=== PATIENT | female | born 1945 | race Caucasian/White ===

== ENCOUNTER 2017-08-12 18:33 | Emergency (ER) | payer MEDICARE ==
[2017-08-12] MEDS ORDERED: MORPHINE SULFATE 2 MG INJ IV ONE (19:07)
[2017-08-12] MEDS ORDERED: TORAdol 30 mg Injection IV ONE (19:07)
[2017-08-12] MEDS ORDERED: DECADRON 10MG INJ. IM ONE (19:07)
[2017-08-12] MEDS ORDERED: VALIUM 10 MG/2 ML SYRINGE IV ONE (19:09)
--- NOTE | 2017-08-12 19:13 | ERPHSYRPT ---
- History of Present Illness Time Seen by Provider: 08/12/17 19:03 Source: patient Exam Limitations: no limitations Patient Subjective Stated Complaint: PT BROUGHT IN BY EMS PT STATES SHE HAS CHRONIC BACK. PAIN STATES THAT EVEN ELAINE SMALLEST MOVEMENT. "WILL MAKE IT GO OUT" STATES SHE BEGAN HAVING LOWER. BACK PAIN YESTERDAY BUT STATES NOT GETTING ANY BETTER. DENIES FALL OR TRAUMA TO BACK. Triage Nursing Assessment: PT ALERT WARM AND DRY PT APPEARS TO BE IN PAIN. Physician History: 72 y/o female brought in by ambulance for lower back pain that started this morning while grabbing for an object. Pt states that she has been dealing with low back pain for the past few weeks but the pain was worse today. Pt describes the pain as sharp, constant, 5/10, as high as 10/10 with movement and not relieved by advil. Pt denies any leg weakness or bowel/urinary incontinence. No known fall or injury. Timing/Duration: today Method of Injury: twisted Quality: sharp Back Pain Location: lumbar spine Severity of Pain-Max: severe Severity of Pain-Current: moderate Modifying Factors: Improves With: nothing Associated Symptoms: denies symptoms Allergies/Adverse Reactions: No Known Drug Allergies Allergy (Verified 04/30/16 10:58) Home Medications: Aspirin EC 81 mg [Ecotrin 81 mg] 81 mg PO DAILY 04/18/13 [History] Metoprolol Tartrate 50 mg [Lopressor 50 MG] 50 mg PO DAILY 04/18/13 [ History] Multivitamin [Multivitamins] 1 each PO DAILY 04/18/13 [History] Sertraline HCl 100 mg [Zoloft 100 MG] 50 mg PO DAILY 04/18/13 [History] Simvastatin [Zocor] 40 mg PO DAILY 04/30/16 [History] Hx Tetanus, Diphtheria Vaccination/Date Given: Yes Hx Influenza Vaccination/Date Given: Yes Hx Pneumococcal Vaccination/Date Given: Yes Immunizations Up to Date: Yes - Review of Systems Constitutional: No Fever, No Chills Eyes: No Symptoms Ears, Nose, & Throat: No Symptoms Respiratory: No Cough, No Dyspnea Cardiac: No Chest Pain, No Edema, No Syncope Abdominal/Gastrointestinal: No Abdominal Pain, No Nausea, No Vomiting, No Diarrhea Genitourinary Symptoms: No Dysuria, No Frequency, No Hematuria Musculoskeletal: Back Pain, No Neck Pain Skin: No Rash Neurological: No Dizziness, No Focal Weakness, No Gait Changes, No Sensory Changes Psychological: No Symptoms Endocrine: No Symptoms All Other Systems: Reviewed and Negative - Past Medical History Pertinent Past Medical History: Yes Neurological History: TIA ENT History: No Pertinent History Cardiac History: Hypertension Respiratory History: No Pertinent History Endocrine Medical History: No Pertinent History Musculoskeletal History: Other GI Medical History: No Pertinent History History: No Pertinent History Psycho-Social History: No Pertinent History Female Reproductive Disorders: No Pertinent History Other Medical History: APPEDIX AND REMOVAL OF 15-18 INCHES OF COLON. No hx of heart disease. MVP. Heart murmur - Past Surgical History Past Surgical History: Yes Neuro Surgical History: No Pertinent History Cardiac: No Pertinent History Respiratory: No Pertinent History Gastrointestinal: Appendectomy, Cholecystectomy Genitourinary: No Pertinent History Musculoskeletal: No Pertinent History Female Surgical History: Hysterectomy Other Surgical History: D&C, OVARIAN CYST - Social History Smoking Status: Never smoker Exposure to second hand smoke: No Drug Use: none Patient Lives Alone: No - Female History Hx Last Menstrual Period: N/A Hx Now: No - Nursing Vital Signs Nursing Vital Signs: Initial Vital Signs Temperature 98.4 F 08/12/17 18:40 Pulse Rate 71 08/12/17 18:40 Respiratory Rate 18 08/12/17 18:40 O2 Sat by Pulse Oximetry 100 08/12/17 18:40 Pain Scale Pain Intensity 8 - Physical Exam General Appearance: no apparent distress, alert Eye Exam: PERRL/EOMI, eyes nml inspection Neck Exam: normal inspection, non-tender, supple, full range of motion, No meningismus, No midline tenderness Respiratory Exam: normal breath sounds, lungs clear, No respiratory distress Cardiovascular Exam: regular rate/rhythm, normal heart sounds Gastrointestinal Exam: soft, No tenderness, No mass Back Exam: vertebral tenderness, muscle spasm, point tenderness, No normal range of motion, No CVA tenderness Extremity Exam: normal inspection, normal range of motion, No calf tenderness, No pedal edema Neurologic Exam: alert, oriented x 3, cooperative, synthetic cloth binding cutter II-XII nml as tested, normal mood/affect, nml station & gait, sensation nml, No motor deficits Skin Exam: normal color, warm, dry, No rash SpO2: 100 Oxygen Delivery: Room Air - Course Nursing assessment & vital signs reviewed: Yes Ordered Tests: Active Orders 24 hr Category Date Time Status LUMBAR SPINE W/O [CT] Stat Exams 08/12/17 19:07 Taken Medication Summary Discontinued Medications Generic Name Dose Route Start Last Admin Trade Name Samantha PRN Reason Stop Dose Admin Cyclobenzaprine HCl 10 mg 08/12/17 19:31 08/12/17 19:37 Cyclobenzaprine 10 Mg PO 08/12/17 19:32 10 mg STAT ONE Administration Cyclobenzaprine HCl Confirm 08/12/17 19:37 Cyclobenzaprine 10 Mg Administered 08/12/17 19:38 Dose 10 mg .ROUTE .STK-MED ONE Dexamethasone Sodium Phosphate 10 mg 08/12/17 19:07 08/12/17 19:30 Decadron 10mg Inj. IM 08/12/17 19:08 Not Given STAT ONE Dexamethasone Sodium Phosphate Confirm 08/12/17 19:20 Decadron 10mg Inj. Administered 08/12/17 19:21 Dose 10 mg .ROUTE .STK-MED ONE Dexamethasone Sodium Phosphate 10 mg 08/12/17 19:27 08/12/17 19:29 Decadron 10mg Inj. IV 08/12/17 19:28 10 mg STAT ONE Administration Diazepam 2 mg 08/12/17 19:09 08/12/17 19:30 Valium 10 Mg/2 Ml Syringe IV 08/12/17 19:10 Not Given STAT ONE Ketorolac Tromethamine 30 mg 08/12/17 19:07 08/12/17 19:29 Toradol 30 Mg Injection IV 08/12/17 19:08 30 mg STAT ONE Administration Ketorolac Tromethamine Confirm 08/12/17 19:19 Toradol 30 Mg Injection Administered 08/12/17 19:20 Dose 30 mg .ROUTE .STK-MED ONE Morphine Sulfate 2 mg 08/12/17 19:07 08/12/17 19:29 Morphine Sulfate 2 Mg Inj IV 08/12/17 19:08 2 mg STAT ONE Administration Morphine Sulfate Confirm 08/12/17 19:20 Morphine Sulfate 2 Mg Inj Administered 08/12/17 19:21 Dose 2 mg .ROUTE .STK-MED ONE - Progress Progress: improved Progress Note: 08/12/17 20:33 The patient feels better after receiving decadron, morphine, toradol and flexeril. The CT scan lumbar spine shows degenerative disc disease and mild spinal stenosis. The patient will be d/c home on short course of steroids, norco , and flexeril for back spasm. - Departure Time of Disposition: 20:34 Departure Disposition: Home Clinical Impression: Back strain Qualifiers: Encounter type: initial encounter Qualified Code(s): S39.012A - Strain of muscle, fascia and tendon of lower back, initial encounter Condition: Stable Critical Care Time: No Referrals: ABHILASH CHAIDEZ [Primary Care Provider] - Instructions: Low Back Pain (DC) Additional Instructions: Return to the ER if you should have worsening back pain, leg weakness or urinary or bowel incontinence. Prescriptions: Cyclobenzaprine HCl [Flexeril] 10 mg PO TID PRN #15 tablet PRN Reason: Muscle Spasms Hydrocodone Bit/Acetaminophen [[place] 5-325 Tablet] 1 each PO QID PRN #15 tablet MDD 4 PRN Reason: Severe Pain Prednisone 20 mg [Deltasone 20 mg] 20 mg PO DAILY #5 tablet
[2017-08-12] MEDS ORDERED: TORAdol 30 mg Injection ONE (19:19)
[2017-08-12] MEDS ORDERED: MORPHINE SULFATE 2 MG INJ ONE (19:20)
[2017-08-12] MEDS ORDERED: DECADRON 10MG INJ. ONE (19:20)
[2017-08-12] MEDS ORDERED: DECADRON 10MG INJ. IV ONE (19:27)
[2017-08-12] MEDS ORDERED: Cyclobenzaprine 10 MG PO ONE (19:31)
[2017-08-12] MEDS ORDERED: Cyclobenzaprine 10 MG ONE (19:37)
[2017-08-12 20:59] VITALS: BP 161/74; PULSE 72; O2SAT 94
--- NOTE | 2017-08-13 09:34 | XRAY ---
Indication: Chronic low back pain. Multiple contiguous axial images obtained through the lumbar spine. Sagittal and coronal reformatted images obtained. Comparison: None Axial images negative for acute fracture, suspicious bone lesions, or spinal canal stenosis. At the L4-S1 levels, there is broad-based disc bulge effacing the thecal sac. Facets are symmetric with bilateral L5-S1 degenerative facet arthropathy. Also bilateral L4-L5 foraminal narrowing and bilateral L5-S1 foraminal stenosis. Sagittal and coronal reformatted images demonstrates normal alignment with L5-S1 disc space loss. No acute compression fracture or subluxation. Visualized noncontrasted soft tissues demonstrates mild aortoiliac calcifications without AAA, 1 cm right mid renal cortical cyst, and previous cholecystectomy. Impression: 1. L4-S1 degenerative disc disease better evaluated with outpatient MRI. 2. Negative acute fracture/subluxation. 3. Right renal cyst. Comment: Preliminary interpretation was made by [facility]. No discrepancy. CTDI 74.88
== END 2017-08-12 21:01 | disposition home or self-care (01) ==
LOC: ED 18:33
DX: S39.012A Strain of muscle, fascia and tendon of lower back, initial encounter (principal); Z79.899 Other long term (current) drug therapy; M51.36 Other intervertebral disc degeneration, lumbar region; M48.061 Spinal stenosis, lumbar region without neurogenic claudication
CPT/HCPCS: 72131; 96374; 96375; 99284; J1100; J1885; J2270; A9270-GY

== ENCOUNTER 2017-10-18 05:58 | Day surgery (SDC) | payer MEDICARE ==
[2017-10-18] MEDS ORDERED: DIPRIVAN 200 MG/20 ML IV ONE (05:59)
[2017-10-18] MEDS ORDERED: Ketamine HCl 50 MG/ML IV ONE (05:59)
[2017-10-18] MEDS ORDERED: Lactated Ringers 1,000 ML IV SCH (06:00)
[2017-10-18 08:41] VITALS: O2SAT 97
[2017-10-18 09:10] VITALS: BP 152/77; PULSE 71
--- NOTE | 2017-10-18 09:13 | OP ---
SURGERY DATE/TIME: 10/18/2017723 PREOPERATIVE DIAGNOSIS: Heme-positive stool. POSTOPERATIVE DIAGNOSIS: Sigmoid colon polyp. PROCEDURE: Colonoscopy with hot snare polypectomy. SURGEON: Dr. Galarza. ANESTHESIA: MAC. Medications given by anesthesia department. HISTORY: The patient is a 72 white female presenting now for colonoscopic evaluation. She had a positive stool for occult blood. She was felt the need to have endoscopic evaluation. She was appraised of the risks of the procedure including the risk of perforation, phlebitis, untoward reaction to medication, bleeding and missed lesions. The patient verbalized her understanding and desired to have the procedure performed. DESCRIPTION OF PROCEDURE: The patient was given the medications by the anesthesia department. She had continuous pulse oximetry, ECG monitoring, intermittent blood pressure monitoring and tidal CO2 monitoring during the examination. She was placed in the left lateral decubitus position. A digital rectal examination was performed and revealed normal anal sphincter tone and no masses. The flexible Olympus pediatric colonoscope was used to intubate the rectum. A view of the colon was developed sequentially to the cecum including a view of the anastomotic junction of a previous partial right hemicolectomy. Upon insertion and withdrawal otherwise was noted a 1 cm pedunculated polyp in the sigmoid colon this was removed using hot polypectomy snare and retrieved for pathologic evaluation. No mucosal lesions were encountered. The scope was removed from the patient who tolerated the procedure well and was sent back to OP recovery in good condition. The prep was noted to be fair to good.
== END 2017-10-18 09:26 | disposition home or self-care (01) ==
LOC: SDC 05:58
PROVIDERS: ATTEND Family Medicine
PROC: 0DBN8ZX Excision of Sigmoid Colon, Via Natural or Artificial Opening Endoscopic, Diagnostic (ICD-10-PCS; principal; 2017-10-18)
DX: K63.5 Polyp of colon (principal); R19.5 Other fecal abnormalities
CPT/HCPCS: 88305; 99100; J2704

== ENCOUNTER 2018-04-17 10:14 | Observation (INO) | payer MEDICARE ==
--- NOTE | 2018-04-17 10:27 | ERPHSYRPT ---
- History of Present Illness Time Seen by Provider: 04/17/18 10:20 Source: patient, family Physician History: 72-year-old white female brought from [facility] with complaints of sudden onset of a decreased responsiveness patient apparently had gotten a flu shot and the pneumonia shot on apparently began to feel sick with cough and vomiting presented to [facility] today patient had a syncopal episode. Arrives somewhat slow to respond on initial evaluation however speaking now moving all extremities. Past medical history includes mitral valve prolapse, borderline diabetes, TIA, high blood pressure Past surgical history includes colon resection appendectomy hysterectomy Social history no tobacco alcohol or illicit drugs Timing/Duration: other (coughing nausea vomiting since syncopal at [facility]) Modifying Factors: Improves With: nothing Associated Symptoms: nausea, vomiting, shortness of breath, cough, syncope, No abdominal pain, No heartburn, No diaphoresis, No chills, No chest pain, No fever , No headaches, No loss of appetite, No malaise, No rash, No seizure, No weakness Allergies/Adverse Reactions: No Known Drug Allergies Allergy (Verified 04/17/18 10:31) Home Medications: Aspirin 81 mg PO DAILY 10/05/17 [History] Benazepril HCl [Lotensin] 20 mg PO DAILY 10/05/17 [History] Clopidogrel Bisulfate 75 mg [PLAVIX 75 MG Tablet] 75 mg PO DAILY 10/05/17 [History] Dorzolamide HCl [Trusopt] 1 drop OP BID 10/05/17 [History] Metformin HCl 500 mg [Glucophage 500 MG] 500 mg PO DAILY 10/05/17 [History ] Metoprolol Succinate 50 mg PO DAILY 10/05/17 [History] Multivitamin [Multivitamins] 1 each PO DAILY 10/05/17 [History] Sertraline HCl 100 mg PO DAILY 10/05/17 [History] Triamterene/Hydrochlorothiazid [Triamterene-Hctz 37.5-25 mg Tb] 1 tab PO DAILY 10/05/17 [History] Simvastatin 40 mg [Zocor 40 mg] 40 mg PO HS 10/18/17 [History] Latanoprost/Pf [Latanoprost 0.005% Eye Drop] 1 drop OP DAILY 04/17/18 [History] Hx Tetanus, Diphtheria Vaccination/Date Given: Yes Hx Influenza Vaccination/Date Given: Yes Hx Pneumococcal Vaccination/Date Given: Yes - Review of Systems Constitutional: No Fever, No Chills Eyes: No Symptoms Ears, Nose, & Throat: No Symptoms Respiratory: Cough, Dyspnea Cardiac: Syncope, No Chest Pain, No Edema Abdominal/Gastrointestinal: Nausea, Vomiting Genitourinary Symptoms: No Dysuria Musculoskeletal: No Back Pain, No Neck Pain Skin: No Rash Neurological: No Dizziness, No Focal Weakness, No Sensory Changes Psychological: No Symptoms Endocrine: No Symptoms All Other Systems: Reviewed and Negative - Past Medical History Pertinent Past Medical History: Yes Neurological History: TIA ENT History: No Pertinent History Cardiac History: Hypertension Respiratory History: No Pertinent History Endocrine Medical History: No Pertinent History Musculoskeletal History: Other GI Medical History: No Pertinent History History: No Pertinent History Psycho-Social History: No Pertinent History Female Reproductive Disorders: No Pertinent History Other Medical History: APPEDIX AND REMOVAL OF 15-18 INCHES OF COLON. No hx of heart disease. MVP. 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 - Social History Smoking Status: Never smoker Exposure to second hand smoke: No Drug Use: none Patient Lives Alone: No - Nursing Vital Signs Nursing Vital Signs: Initial Vital Signs Temperature 97.8 F 04/17/18 10:21 Pulse Rate 66 04/17/18 10:21 Respiratory Rate 20 04/17/18 10:21 Blood Pressure 173/86 04/17/18 10:21 O2 Sat by Pulse Oximetry 99 04/17/18 10:21 Pain Scale Pain Intensity 0 - Physical Exam General Appearance: other (patient slow to respond initially now alert and answering questions frequent cough) Eye Exam: PERRL/EOMI, eyes nml inspection Ears, Nose, Throat Exam: normal ENT inspection, TMs normal, pharynx normal, moist mucous membranes Neck Exam: normal inspection, non-tender, supple, full range of motion Respiratory Exam: normal breath sounds, lungs clear, No respiratory distress Cardiovascular Exam: regular rate/rhythm, normal heart sounds, normal peripheral pulses Gastrointestinal/Abdomen Exam: soft, normal bowel sounds, No tenderness, No mass Back Exam: normal inspection, normal range of motion, No CVA tenderness, No vertebral tenderness Extremity Exam: normal inspection, normal range of motion, pelvis stable Neurologic Exam: alert, oriented x 3, solutions executive security II-XII nml as tested, other (patient slow to respond initially however now alert and answering questions moving all extremities no facial droop speech normal normal finger to nose sensation intact to all extremities cloth picker equal 5 over 5 [place] 2 through 12 intact) Skin Exam: normal color, warm, dry, No rash SpO2 Interpretation: normal (99%) - Course Nursing assessment & vital signs reviewed: Yes EKG Interpreted by Me: RATE (65 bpm), NORMAL AXIS, Other (EKG: Sinus arrhythmia , 65 bpm, normal axis, no acute ST or T wave changes noted) - Radiology Exams Chest X-ray Interpretation: Discussed w/ radiologist (Chest x-ray: Normal heart and lungs. Bony thorax intact with mild osteopenia and degenerative changes. No new or acute findings.) - CT Exams Head CT Interpretation: Discussed w/radiologist (stable, non acute senile brain) Ordered Tests: Active Orders 24 hr Category Date Time Status Accucheck STAT Care 04/17/18 10:16 Active EKG-ER Only STAT Care 04/17/18 10:16 Active IV Insertion STAT Care 04/17/18 10:16 Active Pulse Oximetry (ED) STAT Care 04/17/18 10:16 Active CHEST 1 VIEW (PORTABLE) Stat Exams 04/17/18 10:17 Completed HEAD WITHOUT CONTRAST [CT] Stat Exams 04/17/18 11:07 Completed AMYLASE Stat Lab 04/17/18 10:55 Completed BLOOD CULTURE Stat Lab 04/17/18 11:05 Received CBC W DIFF Stat Lab 04/17/18 10:55 Completed CMP Stat Lab 04/17/18 10:55 Completed CULTURE,URINE Stat Lab 04/17/18 10:16 Received D-DIMER QUANTITATION Stat Lab 04/17/18 10:55 Completed LIPASE Stat Lab 04/17/18 10:55 Completed Lactic Acid Stat Lab 04/17/18 10:55 Completed NT PRO BNP Stat Lab 04/17/18 10:55 Completed TROPONIN Stat Lab 04/17/18 10:55 Completed UA W/RFX UR CULTURE Stat Lab 04/17/18 10:16 Completed Urine Triage Profile Stat Lab 04/17/18 10:42 Completed VENOUS BLOOD GAS Stat Lab 04/17/18 10:55 Completed Medication Summary Generic Name Dose Route Start Last Admin Trade Name Samantha PRN Reason Stop Dose Admin Sodium Chloride 1,000 mls @ 100 mls/hr 04/17/18 10:30 04/17/18 10:52 Sodium Chloride 0.9% 1000 Ml IV 05/17/18 10:29 100 mls/hr .Q10H NICOLETTE Administration Lab/Rad Data: Laboratory Result Diagrams 04/17/18 10:55 Laboratory Results 04/17/18 04/17/18 04/17/18 Range/Units 10:55 10:55 10:55 WBC (4.0-10.5) K/mm3 RBC (4.1-5.4) M/mm3 Hgb (12.0-16.0) gm/dl Hct (35-47) % MCV (78-100) fl MCH (26-32) pg MCHC (32-36) g/dl RDW (11.5-14.0) % Plt Count (150-450) K/mm3 MPV (6-9.5) fl Gran % (36.0-66.0) % Eos # (Auto) (0-0.5) Absolute Lymphs (auto) (1.0-4.6) Absolute Monos (auto) (0.0-1.3) Lymphocytes % (24.0-44.0) % Monocytes % (0.0-12.0) % Eosinophils % (0.00-5.0) % Basophils % (0.0-0.4) % Absolute Granulocytes (1.4-6.9) Basophils # (0-0.4) D-Dimer 830 H* (215-500) ng/mL pO2/FiO2 Ratio 21.0 % VBG pH 7.40 (7.32-7.42) VBG pCO2 at Pat Temp 43 (42-55) mm/Hg VBG pO2 at Pat Temp 16 L (25-40) mm/Hg VBG HCO3 26.6 (22-28) meq/L VBG O2 Sat (Alfredo) 29.5 L (95-100) VBG Base Excess 1.5 (-2.0-2.0) VBG Hemoglobin 12.3 VBG Carboxyhemoglobin 0.7 (0.0-6.9) % T HGB POC Potassium 3.7 (3.5-5.1) Anion Gap (5-15) MEQ/L Lactic Acid (0.4-2.0) Troponin I (0.000-0.034) ng/mL Urine Color (YELLOW) Urine Appearance (CLEAR) Urine pH (5-6) Ur Specific [place] (1.005-1.025) Urine Protein (Negative) Urine Ketones (NEGATIVE) Urine Blood (0-5) Marvin/ul Urine Nitrite (NEGATIVE) Urine Bilirubin (NEGATIVE) Urine Urobilinogen (0-1) mg/dL Ur Leukocyte Esterase (NEGATIVE) Urine WBC (Auto) (0-5) /HPF Urine RBC (Auto) (0-2) /HPF U Epithel Cells (Auto) (FEW) /HPF Urine Bacteria (Auto) (NEGATIVE) /HPF Urine Mucus (Auto) (NEGATIVE) /HPF Urine Culture Reflexed (NO) Urine Glucose (NEGATIVE) mg/dL Ur Methadone (NEGATIVE) 04/17/18 04/17/18 04/17/18 Range/Units 10:55 10:55 10:55 WBC 8.8 (4.0-10.5) K/mm3 RBC 4.36 (4.1-5.4) M/mm3 Hgb 12.9 (12.0-16.0) gm/dl Hct 39.0 (35-47) % MCV 89.4 (78-100) fl MCH 29.6 (26-32) pg MCHC 33.1 (32-36) g/dl RDW 12.9 (11.5-14.0) % Plt Count 370 (150-450) K/mm3 MPV 10.3 H (6-9.5) fl Gran % 72.5 H (36.0-66.0) % Eos # (Auto) 0.51 H (0-0.5) Absolute Lymphs (auto) 1.34 (1.0-4.6) Absolute Monos (auto) 0.53 (0.0-1.3) Lymphocytes % 15.2 L (24.0-44.0) % Monocytes % 6.0 (0.0-12.0) % Eosinophils % 5.8 H (0.00-5.0) % Basophils % 0.5 (0.0-0.4) % Absolute Granulocytes 6.40 (1.4-6.9) Basophils # 0.04 (0-0.4) D-Dimer (215-500) ng/mL pO2/FiO2 Ratio % VBG pH (7.32-7.42) VBG pCO2 at Pat Temp (42-55) mm/Hg VBG pO2 at Pat Temp (25-40) mm/Hg VBG HCO3 (22-28) meq/L VBG O2 Sat (Alfredo) (95-100) VBG Base Excess (-2.0-2.0) VBG Hemoglobin VBG Carboxyhemoglobin (0.0-6.9) % T HGB POC Potassium (3.5-5.1) Anion Gap (5-15) MEQ/L Lactic Acid 1.9 (0.4-2.0) Troponin I (0.000-0.034) ng/mL Urine Color (YELLOW) Urine Appearance (CLEAR) Urine pH (5-6) Ur Specific [place] (1.005-1.025) Urine Protein (Negative) Urine Ketones (NEGATIVE) Urine Blood (0-5) Marvin/ul Urine Nitrite (NEGATIVE) Urine Bilirubin (NEGATIVE) Urine Urobilinogen (0-1) mg/dL Ur Leukocyte Esterase (NEGATIVE) Urine WBC (Auto) (0-5) /HPF Urine RBC (Auto) (0-2) /HPF U Epithel Cells (Auto) (FEW) /HPF Urine Bacteria (Auto) (NEGATIVE) /HPF Urine Mucus (Auto) (NEGATIVE) /HPF Urine Culture Reflexed (NO) Urine Glucose (NEGATIVE) mg/dL Ur Methadone (NEGATIVE) 04/17/18 04/17/18 Range/Units 10:42 10:16 WBC (4.0-10.5) K/mm3 RBC (4.1-5.4) M/mm3 Hgb (12.0-16.0) gm/dl Hct (35-47) % MCV (78-100) fl MCH (26-32) pg MCHC (32-36) g/dl RDW (11.5-14.0) % Plt Count (150-450) K/mm3 MPV (6-9.5) fl Gran % (36.0-66.0) % Eos # (Auto) (0-0.5) Absolute Lymphs (auto) (1.0-4.6) Absolute Monos (auto) (0.0-1.3) Lymphocytes % (24.0-44.0) % Monocytes % (0.0-12.0) % Eosinophils % (0.00-5.0) % Basophils % (0.0-0.4) % Absolute Granulocytes (1.4-6.9) Basophils # (0-0.4) D-Dimer (215-500) ng/mL pO2/FiO2 Ratio % VBG pH (7.32-7.42) VBG pCO2 at Pat Temp (42-55) mm/Hg VBG pO2 at Pat Temp (25-40) mm/Hg VBG HCO3 (22-28) meq/L VBG O2 Sat (Alfredo) (95-100) VBG Base Excess (-2.0-2.0) VBG Hemoglobin VBG Carboxyhemoglobin (0.0-6.9) % T HGB POC Potassium (3.5-5.1) Anion Gap (5-15) MEQ/L Lactic Acid (0.4-2.0) Troponin I (0.000-0.034) ng/mL Urine Color STRAW (YELLOW) Urine Appearance CLEAR (CLEAR) Urine pH 6.0 (5-6) Ur Specific [place] 1.004 (1.005-1.025) Urine Protein NEGATIVE (Negative) Urine Ketones NEGATIVE (NEGATIVE) Urine Blood MODERATE (0-5) Marvin/ul Urine Nitrite NEGATIVE (NEGATIVE) Urine Bilirubin NEGATIVE (NEGATIVE) Urine Urobilinogen NEGATIVE (0-1) mg/dL Ur Leukocyte Esterase NEGATIVE (NEGATIVE) Urine WBC (Auto) 0-2 (0-5) /HPF Urine RBC (Auto) 0-2 (0-2) /HPF U Epithel Cells (Auto) RARE (FEW) /HPF Urine Bacteria (Auto) RARE (NEGATIVE) /HPF Urine Mucus (Auto) SLIGHT (NEGATIVE) /HPF Urine Culture Reflexed YES (NO) Urine Glucose NEGATIVE (NEGATIVE) mg/dL Ur Methadone (NEGATIVE) - Progress Progress: improved Progress Note: 04/17/18 11:50 72-year-old white [facility] with complaint of a syncopal episode. Patient apparently had received a flu vaccination and pneumonia vaccination . She is states that she had general malaise felt weak the vomited one time night continued to have malaise Tuesday and Tuesday she felt better yesterday and then today she began to feel weak and general malaise. She presented to [facility] where she vomited she states she then began to fell lightheaded and passed out. Patient arrives in the emergency room she was a little slow to respond with speaking for approximately a minute but then was able to answer questions and move her extremities. Patient had a frequent cough on arrival which seems to have cleared. I did not find focal deficits CT of the head was obtained secondary to the patient still being a little slow with questions. Patient was started on normal saline 100 mL per hour EKG was obtained. CT of the head is remarkable for senile brain no acute changes. Chest x-ray no acute disease processes noted. EKG sinus arrhythmia 65 bpm normal axis no acute ST or T wave changes. Patient's venous gases are essentially normal pH 7.4 PCO2 43 lactate is 1.9 Patient's chemistry is still pending urinalysis is pending Patient is feeling much better at this time she is in no distress she is alert oriented 3 breathing normally him she has 95% on room air. Blood pressure and pulse are stable patient with good perfusion to all extremities. She has a normal neurologic exam. 04/17/18 15:03 Patient did have a d-dimer of 830 patient is not short of breath at this time she has no chest pain, and she has a GFR of 40 Chemistry is remarkable for a BUN of 23.6 creatinine 1.3 glucose 164 rest the electrolytes essentially normal CBC is normal troponin normal BNP is normal Patient had an episode of feeling dizzy approximately one hour ago while waiting for labs. She is feeling better now. I've discussed the patient's case with Dr. Ruby. Will place patient on observation telemetry. Provide IV fluids. Dr. Ruby did request that I order an echocardiogram in view of the patient's syncope. - Departure Time of Disposition: 15:05 Departure Disposition: Observation Clinical Impression: Syncope Qualifiers: Syncope type: unspecified Qualified Code(s): R55 - Syncope and collapse Condition: Fair Critical Care Time: No Referrals: ABHILASH CHAIDEZ [Primary Care Provider] -
[2018-04-17] MEDS ORDERED: Sodium Chloride 0.9% 1000 ML 1,000 ML IV SCH (10:30)
[2018-04-17 10:59] LABS: VBG BASE EXCESS 1.5 (-2.0-2.0); VBG CARBOXYHEMOGLOBIN 0.7 % T HGB (0.0-6.9); VBG HCO3- 26.6 meq/L (22-28); VBG HEMOGLOBIN 12.3; VBG O2 SATURATION 29.5 (95-100); VBG POTASSIUM 3.7 (3.5-5.1); VBG pH 7.4 (7.32-7.42)
--- NOTE | 2018-04-17 10:59 | XRAY ---
Indication: Cough, syncope, and vertigo. Comparison: April 30, 2016. Portable chest again demonstrates normal heart and lungs. Bony thorax intact again with mild osteopenia and degenerative changes. No new/acute findings.
[2018-04-17 11:00] LABS: Lactic Acid 1.9 (0.4-2.0)
[2018-04-17 11:16] LABS: BASOPHIL % 0.5 % (0.0-0.4); Basophil (Absolute #) 0.04 (0-0.4); Eosinophil % 5.8 % (0.00-5.0); Eosinophil (Absolute #) 0.51 (0-0.5); Granulocytes % 72.5 % (36.0-66.0); Hemoglobin 12.9 gm/dl (12.0-16.0); Lymphocyte (Absolute #) 1.34 (1.0-4.6); Lymphocytes % 15.2 % (24.0-44.0); Mean Cell Volume 89.4 fl (78-100); Mean Corpuscular Hemoglobin 29.6 pg (26-32); Mean Corpuscular Hgb Concent. 33.1 g/dl (32-36); Mean Platelet Volume 10.3 fl (6-9.5); Monocyte (Absolute #) 0.53 (0.0-1.3); Platelet Count 370 K/mm3 (150-450); Red Blood Count 4.36 M/mm3 (4.1-5.4); Red Cell Distribution Width 12.9 % (11.5-14.0); White Blood Count 8.8 K/mm3 (4.0-10.5)
--- NOTE | 2018-04-17 11:44 | XRAY ---
Indication: Syncope and vertigo. Multiple contiguous axial images obtained through the head without contrast. Comparison: April 30, 2014. Again age-appropriate global atrophy and minimal periventricular degenerative micro-ischemia. No acute intracranial hemorrhage, abnormal extra-axial fluid collection, or mass effect. Fourth ventricle is midline without hydrocephalus. Bony calvarium intact. Visualized paranasal sinuses and mastoid air cells are clear. Impression: Stable nonacute senile brain. CTDI 70.31
[2018-04-17 13:32] LABS: Appearance CLEAR (CLEAR); Bilirubin NEGATIVE (NEGATIVE); Blood MODERATE Ery/ul (0-5); Glucose NEGATIVE (NEGATIVE); Ketones NEGATIVE (NEGATIVE); Leukocyte Esterase NEGATIVE (NEGATIVE); Nitrite NEGATIVE (NEGATIVE); Protein,Urine Dip NEGATIVE (Negative); Specific Gravity 1.004 (1.005-1.025); Urobilinogen NEGATIVE mg/dL (0-1)
[2018-04-17] MEDS: Sodium Chloride 0.9% 1000 ML 1,000 ML IV SCH (16:18)
[2018-04-17] MEDS ORDERED: PLAVIX 75 MG Tablet PO SCH (18:00)
[2018-04-17] MEDS ORDERED: Maxzide-25MG Tablet PO ONE (18:04)
[2018-04-17] MEDS ORDERED: ECOTRIN 81 MG PO ONE (18:05)
[2018-04-17] MEDS ORDERED: THERAGRAN MULTIVITAMIN PO ONE (18:06)
[2018-04-17] MEDS ORDERED: Toprol Xl 50 MG PO ONE (18:06)
[2018-04-17] MEDS ORDERED: ZOLOFT 50 MG TABLET PO ONE (18:07)
[2018-04-17] MEDS ORDERED: Lotensin 10 MG PO ONE (18:08)
[2018-04-17] MEDS ORDERED: Xalatan OP SCH (22:00)
[2018-04-17] MEDS ORDERED: ZOCOR 20MG PO SCH (22:00)
[2018-04-18] MEDS: Sodium Chloride 0.9% 1000 ML 1,000 ML IV SCH (02:53)
[2018-04-18 05:30] LABS: BASOPHIL % 0.4 % (0.0-0.4); Basophil (Absolute #) 0.03 (0-0.4); Eosinophil (Absolute #) 0.37 (0-0.5); Granulocyte Absolute (ANC) 4.64 (1.4-6.9); Granulocytes % 62.5 % (36.0-66.0); Hematocrit 33.5 % (35-47); Hemoglobin 10.8 gm/dl (12.0-16.0); Lymphocyte (Absolute #) 1.83 (1.0-4.6); Lymphocytes % 24.6 % (24.0-44.0); Mean Corpuscular Hemoglobin 29.3 pg (26-32); Mean Corpuscular Hgb Concent. 32.2 g/dl (32-36); Mean Platelet Volume 9.5 fl (6-9.5); Monocyte (Absolute #) 0.56 (0.0-1.3); Monocytes % 7.5 % (0.0-12.0); Platelet Count 311 K/mm3 (150-450); Red Blood Count 3.68 M/mm3 (4.1-5.4); White Blood Count 7.4 K/mm3 (4.0-10.5)
[2018-04-18 05:52] LABS: ALBUMIN 3.7 g/dL (3.5-5.0); ANION GAP 12.6 MEQ/L (5-15); BILIRUBIN,TOTAL 0.4 mg/dL (0.2-1.3); Creatinine 1 1.15 mg/dL (0.52-1.04); Total Protein 6.3 g/dL (6.3-8.2)
[2018-04-18] MEDS ORDERED: MEDICATION INTERVENTION MC SCH (06:45)
[2018-04-18 07:12] VITALS: BP 127/57
--- NOTE | 2018-04-18 07:59 | PCM.DCORD ---
- Discharge Discharge Date: 04/18/18 Disposition: Home, Self-Care Condition: Stable Prescriptions: Continue Multivitamin [Multivitamins] 1 each PO DAILY Benazepril HCl [Lotensin] 20 mg PO DAILY Metoprolol Succinate 50 mg PO DAILY Sertraline HCl 100 mg PO DAILY Triamterene/Hydrochlorothiazid [Triamterene-Hctz 37.5-25 mg Tb] 1 tab PO DAILY Clopidogrel Bisulfate 75 mg [PLAVIX 75 MG Tablet] 75 mg PO DAILY Metformin HCl 500 mg [Glucophage 500 MG] 500 mg PO DAILY Dorzolamide HCl [Trusopt] 1 drop OP BID Aspirin 81 mg PO DAILY Simvastatin 40 mg [Zocor 40 mg] 40 mg PO HS Latanoprost/Pf [Latanoprost 0.005% Eye Drop] 1 drop OP DAILY Follow up with: ABHILASH CHAIDEZ [Primary Care Provider] - 1 Week
[2018-04-18 08:01] VITALS: O2SAT 94
[2018-04-18 08:03] VITALS: PULSE 65
--- NOTE | 2018-04-18 08:07 | PCM.HP ---
History of Present Illness - Chief Complaint Chief Complaint: SYNCOPE Date: 04/18/18 History of Present Illness: is a 72 year old female. she lives with her daughter who was not feeling well a little nauseated last week. Ms. Berg went and received a flu and pneumovax at [facility] on and about 4 hours later started with nausea, vomited once and was feeling weak and tired. She continued to feel fatigued and nauseated all weekend and came into [facility] Tuesday but began vomiting there very violently and caused her to pass out. She was taken to the ED where she was a little sluggish and nauseated but no other symptoms. She denies any chest pain, shortness of breath , cough, or swelling in her legs. She denies palpitations. This am she feels well has been able to get out of bed and walk without symptoms and is eating well without nausea or vomiting. - Review of Systems Constitutional: Chills, Fatigue, No Fever Eyes: No Symptoms Ears, Nose, & Throat: No Symptoms Respiratory: No Cough, No Short Of Breath Cardiac: No Chest Pain, No Edema, No Syncope Abdominal/Gastrointestinal: Nausea, Vomiting, No Abdominal Pain, No Diarrhea Genitourinary Symptoms: No Dysuria Musculoskeletal: No Back Pain, No Neck Pain Skin: No Rash Neurological: No Dizziness, No Focal Weakness, No Sensory Changes Psychological: No Symptoms Endocrine: No Symptoms Hematologic/Lymphatic: No Symptoms Immunological/Allergic: No Symptoms Medications & Allergies Home Medications: Home Medication List Aspirin 81 mg PO DAILY 10/05/17 [History Confirmed 04/17/18] Benazepril HCl [Lotensin] 20 mg PO DAILY 10/05/17 [History Confirmed 04/17/18] Clopidogrel Bisulfate 75 mg [PLAVIX 75 MG Tablet] 75 mg PO DAILY 10/05/17 [History Confirmed 04/17/18] Dorzolamide HCl [Trusopt] 1 drop OP BID 10/05/17 [History Confirmed 04/17/18] Metformin HCl 500 mg [Glucophage 500 MG] 500 mg PO DAILY 10/05/17 [ History Confirmed 04/17/18] Metoprolol Succinate 50 mg PO DAILY 10/05/17 [History Confirmed 04/17/18] Multivitamin [Multivitamins] 1 each PO DAILY 10/05/17 [History Confirmed ] Sertraline HCl 100 mg PO DAILY 10/05/17 [History Confirmed 04/17/18] Triamterene/Hydrochlorothiazid [Triamterene-Hctz 37.5-25 mg Tb] 1 tab PO DAILY 10/05/17 [History Confirmed 04/17/18] Simvastatin 40 mg [Zocor 40 mg] 40 mg PO HS 10/18/17 [History Confirmed 04/17/18 ] Latanoprost/Pf [Latanoprost 0.005% Eye Drop] 1 drop OP DAILY 04/17/18 [History Confirmed 04/17/18] Allergies/Adverse Reactions: Allergies Allergy/AdvReac Type Severity Reaction Status Date / Time No Known Drug Allergies Allergy Verified 04/17/18 10:31 - Past Medical History Past Medical History: Yes Neurological History: TIA ENT History: No Pertinent History Cardiac History: Hypertension Respiratory History: No Pertinent History Endocrine Medical History: Diabetes Type II Musculoskelatal History: Other GI Medical History: No Pertinent History History: No Pertinent History Pyscho-Social History: No Pertinent History Reproductive Disorders: No Pertinent History Comment: BORDERLINE DM. MVP. 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 TOOK OUT 15-18IN OF COLON - Social History Smoking Status: Never smoker Exposure to second hand smoke: No Alcohol: None Drug Use: none - Physical Exam Vital Signs: Vital Signs - 24 hr Temp Pulse Resp BP Pulse Ox 04/18/18 07:12 98.0 F 66 17 127/57 95 04/18/18 04:00 98.3 F 66 22 160/74 97 04/18/18 00:00 98.6 F 63 21 134/64 96 04/17/18 20:00 20 04/17/18 19:27 98.3 F 70 20 139/65 95 10/01/18 18:40 95 04/17/18 16:20 95 04/17/18 15:19 98.4 F 67 18 156/70 98 04/17/18 13:36 65 20 160/81 99 04/17/18 13:27 98.2 F 68 16 123/64 98 04/17/18 12:42 98.2 F 78 16 150/86 99 04/17/18 11:23 97.8 F 70 18 148/72 96 04/17/18 10:21 97.8 F 66 20 173/86 99 General Appearance: no apparent distress, alert Neurologic Exam: alert, oriented x 3, cooperative, normal mood/affect, nml cerebellar function, nml station & gait, sensation nml, No motor deficits Eye Exam: PERRL/EOMI, eyes nml inspection Ears, Nose, Throat Exam: normal ENT inspection, pharynx normal, moist mucous membranes Neck Exam: normal inspection, non-tender, supple, full range of motion Respiratory Exam: normal breath sounds, lungs clear, No respiratory distress Cardiovascular Exam: regular rate/rhythm, normal heart sounds, normal peripheral pulses Gastrointestinal/Abdomen Exam: soft, normal bowel sounds, No tenderness, No mass Back Exam: normal inspection, normal range of motion, No CVA tenderness, No vertebral tenderness Extremity Exam: normal inspection, normal range of motion, pelvis stable Skin Exam: normal color, warm, dry, No rash Lymphatic Exam: No adenopathy Results - Labs Lab/Micro Results: Accuchecks Accucheck Value: 173 Lab Results-Last 24 Hours 04/17/18 04/17/18 04/17/18 Range/Units 10:16 10:42 10:55 WBC 8.8 (4.0-10.5) K/mm3 RBC 4.36 (4.1-5.4) M/mm3 Hgb 12.9 (12.0-16.0) gm/dl Hct 39.0 (35-47) % MCV 89.4 (78-100) fl MCH 29.6 (26-32) pg MCHC 33.1 (32-36) g/dl RDW 12.9 (11.5-14.0) % Plt Count 370 (150-450) K/mm3 MPV 10.3 H (6-9.5) fl Gran % 72.5 H (36.0-66.0) % Eos # (Auto) 0.51 H (0-0.5) Absolute Lymphs (auto) 1.34 (1.0-4.6) Absolute Monos (auto) 0.53 (0.0-1.3) Lymphocytes % 15.2 L (24.0-44.0) % Monocytes % 6.0 (0.0-12.0) % Eosinophils % 5.8 H (0.00-5.0) % Basophils % 0.5 (0.0-0.4) % Absolute Granulocytes 6.40 (1.4-6.9) Basophils # 0.04 (0-0.4) D-Dimer (215-500) ng/mL pO2/FiO2 Ratio % VBG pH (7.32-7.42) VBG pCO2 at Pat Temp (42-55) mm/Hg VBG pO2 at Pat Temp (25-40) mm/Hg VBG HCO3 (22-28) meq/L VBG O2 Sat (Alfredo) (95-100) VBG Base Excess (-2.0-2.0) VBG Hemoglobin VBG Carboxyhemoglobin (0.0-6.9) % T HGB POC Potassium (3.5-5.1) Sodium (137-145) mmol/L Potassium (3.5-5.1) mmol/L Chloride (98-107) mmol/L Carbon Dioxide (22-30) mmol/L Anion Gap (5-15) MEQ/L BUN (7-17) mg/dL Creatinine (0.52-1.04) mg/dL Estimated GFR ML/MIN Glucose (74-106) mg/dL Lactic Acid (0.4-2.0) Calcium (8.4-10.2) mg/dL Total Bilirubin (0.2-1.3) mg/dL AST (14-36) U/L ALT (0-35) U/L Alkaline Phosphatase (38-126) U/L Troponin I (0.000-0.034) ng/mL Serum Total Protein (6.3-8.2) g/dL Albumin (3.5-5.0) g/dL Urine Color STRAW (YELLOW) Urine Appearance CLEAR (CLEAR) Urine pH 6.0 (5-6) Ur Specific Hurst 1.004 (1.005-1.025) Urine Protein NEGATIVE (Negative) Urine Ketones NEGATIVE (NEGATIVE) Urine Blood MODERATE (0-5) Marvin/ul Urine Nitrite NEGATIVE (NEGATIVE) Urine Bilirubin NEGATIVE (NEGATIVE) Urine Urobilinogen NEGATIVE (0-1) mg/dL Ur Leukocyte Esterase NEGATIVE (NEGATIVE) Urine WBC (Auto) 0-2 (0-5) /HPF Urine RBC (Auto) 0-2 (0-2) /HPF U Epithel Cells (Auto) RARE (FEW) /HPF Urine Bacteria (Auto) RARE (NEGATIVE) /HPF Urine Mucus (Auto) SLIGHT (NEGATIVE) /HPF Urine Culture Reflexed YES (NO) Urine Glucose NEGATIVE (NEGATIVE) mg/dL Ur Methadone (NEGATIVE) 04/17/18 04/17/18 04/17/18 Range/Units 10:55 10:55 10:55 WBC (4.0-10.5) K/mm3 RBC (4.1-5.4) M/mm3 Hgb (12.0-16.0) gm/dl Hct (35-47) % MCV (78-100) fl MCH (26-32) pg MCHC (32-36) g/dl RDW (11.5-14.0) % Plt Count (150-450) K/mm3 MPV (6-9.5) fl Gran % (36.0-66.0) % Eos # (Auto) (0-0.5) Absolute Lymphs (auto) (1.0-4.6) Absolute Monos (auto) (0.0-1.3) Lymphocytes % (24.0-44.0) % Monocytes % (0.0-12.0) % Eosinophils % (0.00-5.0) % Basophils % (0.0-0.4) % Absolute Granulocytes (1.4-6.9) Basophils # (0-0.4) D-Dimer (215-500) ng/mL pO2/FiO2 Ratio 21.0 % VBG pH 7.40 (7.32-7.42) VBG pCO2 at Pat Temp 43 (42-55) mm/Hg VBG pO2 at Pat Temp 16 L (25-40) mm/Hg VBG HCO3 26.6 (22-28) meq/L VBG O2 Sat (Alfredo) 29.5 L (95-100) VBG Base Excess 1.5 (-2.0-2.0) VBG Hemoglobin 12.3 VBG Carboxyhemoglobin 0.7 (0.0-6.9) % T HGB POC Potassium 3.7 (3.5-5.1) Sodium (137-145) mmol/L Potassium (3.5-5.1) mmol/L Chloride (98-107) mmol/L Carbon Dioxide (22-30) mmol/L Anion Gap (5-15) MEQ/L BUN (7-17) mg/dL Creatinine (0.52-1.04) mg/dL Estimated GFR ML/MIN Glucose (74-106) mg/dL Lactic Acid 1.9 (0.4-2.0) Calcium (8.4-10.2) mg/dL Total Bilirubin (0.2-1.3) mg/dL AST (14-36) U/L ALT (0-35) U/L Alkaline Phosphatase (38-126) U/L Troponin I (0.000-0.034) ng/mL Serum Total Protein (6.3-8.2) g/dL Albumin (3.5-5.0) g/dL Urine Color (YELLOW) Urine Appearance (CLEAR) Urine pH (5-6) Ur Specific Hurst (1.005-1.025) Urine Protein (Negative) Urine Ketones (NEGATIVE) Urine Blood (0-5) Marvin/ul Urine Nitrite (NEGATIVE) Urine Bilirubin (NEGATIVE) Urine Urobilinogen (0-1) mg/dL Ur Leukocyte Esterase (NEGATIVE) Urine WBC (Auto) (0-5) /HPF Urine RBC (Auto) (0-2) /HPF U Epithel Cells (Auto) (FEW) /HPF Urine Bacteria (Auto) (NEGATIVE) /HPF Urine Mucus (Auto) (NEGATIVE) /HPF Urine Culture Reflexed (NO) Urine Glucose (NEGATIVE) mg/dL Ur Methadone (NEGATIVE) 04/17/18 04/17/18 04/18/18 Range/Units 10:55 10:55 05:00 WBC 7.4 (4.0-10.5) K/mm3 RBC 3.68 L (4.1-5.4) M/mm3 Hgb 10.8 L (12.0-16.0) gm/dl Hct 33.5 L (35-47) % MCV 91.0 (78-100) fl MCH 29.3 (26-32) pg MCHC 32.2 (32-36) g/dl RDW 13.0 (11.5-14.0) % Plt Count 311 (150-450) K/mm3 MPV 9.5 (6-9.5) fl Gran % 62.5 (36.0-66.0) % Eos # (Auto) 0.37 (0-0.5) Absolute Lymphs (auto) 1.83 (1.0-4.6) Absolute Monos (auto) 0.56 (0.0-1.3) Lymphocytes % 24.6 (24.0-44.0) % Monocytes % 7.5 (0.0-12.0) % Eosinophils % 5.0 (0.00-5.0) % Basophils % 0.4 (0.0-0.4) % Absolute Granulocytes 4.64 (1.4-6.9) Basophils # 0.03 (0-0.4) D-Dimer 830 H* (215-500) ng/mL pO2/FiO2 Ratio % VBG pH (7.32-7.42) VBG pCO2 at Pat Temp (42-55) mm/Hg VBG pO2 at Pat Temp (25-40) mm/Hg VBG HCO3 (22-28) meq/L VBG O2 Sat (Alfredo) (95-100) VBG Base Excess (-2.0-2.0) VBG Hemoglobin VBG Carboxyhemoglobin (0.0-6.9) % T HGB POC Potassium (3.5-5.1) Sodium (137-145) mmol/L Potassium (3.5-5.1) mmol/L Chloride (98-107) mmol/L Carbon Dioxide (22-30) mmol/L Anion Gap (5-15) MEQ/L BUN (7-17) mg/dL Creatinine (0.52-1.04) mg/dL Estimated GFR ML/MIN Glucose (74-106) mg/dL Lactic Acid (0.4-2.0) Calcium (8.4-10.2) mg/dL Total Bilirubin (0.2-1.3) mg/dL AST (14-36) U/L ALT (0-35) U/L Alkaline Phosphatase (38-126) U/L Troponin I (0.000-0.034) ng/mL Serum Total Protein (6.3-8.2) g/dL Albumin (3.5-5.0) g/dL Urine Color (YELLOW) Urine Appearance (CLEAR) Urine pH (5-6) Ur Specific Hurst (1.005-1.025) Urine Protein (Negative) Urine Ketones (NEGATIVE) Urine Blood (0-5) Marvin/ul Urine Nitrite (NEGATIVE) Urine Bilirubin (NEGATIVE) Urine Urobilinogen (0-1) mg/dL Ur Leukocyte Esterase (NEGATIVE) Urine WBC (Auto) (0-5) /HPF Urine RBC (Auto) (0-2) /HPF U Epithel Cells (Auto) (FEW) /HPF Urine Bacteria (Auto) (NEGATIVE) /HPF Urine Mucus (Auto) (NEGATIVE) /HPF Urine Culture Reflexed (NO) Urine Glucose (NEGATIVE) mg/dL Ur Methadone (NEGATIVE) 04/18/18 Range/Units 05:00 WBC (4.0-10.5) K/mm3 RBC (4.1-5.4) M/mm3 Hgb (12.0-16.0) gm/dl Hct (35-47) % MCV (78-100) fl MCH (26-32) pg MCHC (32-36) g/dl RDW (11.5-14.0) % Plt Count (150-450) K/mm3 MPV (6-9.5) fl Gran % (36.0-66.0) % Eos # (Auto) (0-0.5) Absolute Lymphs (auto) (1.0-4.6) Absolute Monos (auto) (0.0-1.3) Lymphocytes % (24.0-44.0) % Monocytes % (0.0-12.0) % Eosinophils % (0.00-5.0) % Basophils % (0.0-0.4) % Absolute Granulocytes (1.4-6.9) Basophils # (0-0.4) D-Dimer (215-500) ng/mL pO2/FiO2 Ratio % VBG pH (7.32-7.42) VBG pCO2 at Pat Temp (42-55) mm/Hg VBG pO2 at Pat Temp (25-40) mm/Hg VBG HCO3 (22-28) meq/L VBG O2 Sat (Alfredo) (95-100) VBG Base Excess (-2.0-2.0) VBG Hemoglobin VBG Carboxyhemoglobin (0.0-6.9) % T HGB POC Potassium (3.5-5.1) Sodium 139 (137-145) mmol/L Potassium 4.0 (3.5-5.1) mmol/L Chloride 106 (98-107) mmol/L Carbon Dioxide 25 (22-30) mmol/L Anion Gap 12.6 (5-15) MEQ/L BUN 21 H (7-17) mg/dL Creatinine 1.15 H (0.52-1.04) mg/dL Estimated GFR 49.3 ML/MIN Glucose 130 H (74-106) mg/dL Lactic Acid (0.4-2.0) Calcium 9.0 (8.4-10.2) mg/dL Total Bilirubin 0.40 (0.2-1.3) mg/dL AST 21 (14-36) U/L ALT 28 (0-35) U/L Alkaline Phosphatase 71 (38-126) U/L Troponin I (0.000-0.034) ng/mL Serum Total Protein 6.3 (6.3-8.2) g/dL Albumin 3.7 (3.5-5.0) g/dL Urine Color (YELLOW) Urine Appearance (CLEAR) Urine pH (5-6) Ur Specific Hurst (1.005-1.025) Urine Protein (Negative) Urine Ketones (NEGATIVE) Urine Blood (0-5) Marvin/ul Urine Nitrite (NEGATIVE) Urine Bilirubin (NEGATIVE) Urine Urobilinogen (0-1) mg/dL Ur Leukocyte Esterase (NEGATIVE) Urine WBC (Auto) (0-5) /HPF Urine RBC (Auto) (0-2) /HPF U Epithel Cells (Auto) (FEW) /HPF Urine Bacteria (Auto) (NEGATIVE) /HPF Urine Mucus (Auto) (NEGATIVE) /HPF Urine Culture Reflexed (NO) Urine Glucose (NEGATIVE) mg/dL Ur Methadone (NEGATIVE) Accuchecks Accucheck Value: 173 - Radiology Impressions Radiology Exams & Impressions: Radiology Procedures Category Date Time Status CHEST 1 VIEW (PORTABLE) Stat Exams 04/17/18 10:17 Completed ECHO W/2D AND DOPPLER [US] Stat Exams 04/17/18 15:19 Taken HEAD WITHOUT CONTRAST [CT] Stat Exams 04/17/18 11:07 Completed - Other Procedures and Tests Respiratory Therapy 04/17/18 16:20 Respiratory Therapy Assessment DAILY Assessment/Plan (1) Gastroenteritis Current Visit: Yes Status: Acute Assessment & Plan: she had mild dehydration with elevated creatinine on labs from [facility] send out that is improved this am after hydration. She no longer has nausea or vomiting and is feeling well again. The syncope occurred after having several violent bought of vomiting and she denies any previous chest pain, shortness of breath or palpitations. An echo was obtained with results pending. She had negative troponin. She has no respiratory symptoms or swelling or any other pretest qualifers concerning for dvt or pe. She had telemetry overnight without significant events. plan to d/c home with her daughter we discussed signs and symptoms of blood clots, and arrhythmias as well as return immediately for repeat syncope. Code(s): K52.9 - NONINFECTIVE GASTROENTERITIS AND COLITIS, UNSPECIFIED (2) Syncope Current Visit: Yes Status: Acute Qualifiers: Syncope type: unspecified Qualified Code(s): R55 - Syncope and collapse Code(s): R55 - SYNCOPE AND COLLAPSE (3) Dehydration Current Visit: Yes Status: Acute Code(s): E86.0 - DEHYDRATION (4) Hypertension Current Visit: Yes Status: Chronic Code(s): I10 - ESSENTIAL (PRIMARY) HYPERTENSION (5) Type 2 diabetes mellitus Current Visit: Yes Status: Chronic
[2018-04-18] MEDS ORDERED: NON-FORMULARY ITEM (Aspirin [Aspirin] 81 MG) PO SCH (10:00)
[2018-04-18] MEDS ORDERED: ECOTRIN 81 MG PO SCH (10:00)
[2018-04-18] MEDS ORDERED: NON-FORMULARY ITEM (Sertraline Hcl [Sertraline Hcl] 100 MG) PO SCH (10:00)
[2018-04-18] MEDS ORDERED: THERAGRAN MULTIVITAMIN PO SCH (10:00)
[2018-04-18] MEDS ORDERED: ZOLOFT 50 MG TABLET PO SCH (10:00)
[2018-04-18] MEDS ORDERED: DORZOLAMIDE HCL OP SCH (10:00)
[2018-04-18] MEDS ORDERED: Lotensin 10 MG PO SCH (10:00)
[2018-04-18] MEDS ORDERED: NON-FORMULARY ITEM (Benazepril Hcl [Lotensin] 20 MG) PO SCH (10:00)
[2018-04-18] MEDS ORDERED: Toprol Xl 50 MG PO SCH (10:00)
[2018-04-18] MEDS ORDERED: Maxzide 25MG PO SCH (10:00)
[2018-04-18] MEDS ORDERED: NON-FORMULARY ITEM (Multivitamin [Multivitamins] 1 EACH) PO SCH (10:00)
[2018-04-18] MEDS ORDERED: Maxzide-25MG Tablet PO SCH (10:00)
== END 2018-04-18 08:49 | disposition home or self-care (01) ==
LOC: ED 10:14 → MED SURG 15:14
PROVIDERS: ADMIT Family Medicine; ATTEND Family Medicine
DX: K52.9 Noninfective gastroenteritis and colitis, unspecified (principal); R55 Syncope and collapse; E86.0 Dehydration; I10 Essential (primary) hypertension; E11.9 Type 2 diabetes mellitus without complications; Z79.899 Other long term (current) drug therapy; Z86.73 Personal history of transient ischemic attack (TIA), and cerebral infarction without residual deficits
CPT/HCPCS: 36000; 36415; 70450; 71045; 80053; 80307; 81001; 82150; 82805; 82962; 83605; 83690; 83880; 84484; 85025; 85379; 87040; 87086; 93005; 93268; 93306; 94762; 96360; 96361; 96374; 99285; A9270-GY; G0378